=== PATIENT | female | born 1980 | race Hispanic/Latino ===

== ENCOUNTER → 2021-05-03 | Outpatient (CLI) | payer BC | END | disposition home or self-care (01) | LOC: RAH 11:16 | PROVIDERS: ATTEND Internal Medicine | DX: Z12.31 Encounter for screening mammogram for malignant neoplasm of breast (principal) | CPT/HCPCS: 77067 ==

== ENCOUNTER → 2021-05-05 | Outpatient (CLI) | payer BC ==
[~2021-05-05] MED LIST: IOHEXOL-350 75 ML VIAL IV ONE
== END | disposition home or self-care (01) ==
LOC: RAH 11:04
PROVIDERS: ATTEND Internal Medicine
DX: R22.41 Localized swelling, mass and lump, right lower limb (principal)
CPT/HCPCS: 73702; Q9967

== ENCOUNTER → 2021-06-24 | Outpatient (CLI) | payer OTHER | END | disposition home or self-care (01) | LOC: OIH 13:03 | PROVIDERS: ATTEND Internal Medicine | DX: Z13.6 Encounter for screening for cardiovascular disorders (principal) | CPT/HCPCS: 75571 ==

== ENCOUNTER → 2022-09-14 | Outpatient (CLI) | payer BC | END | disposition home or self-care (01) | LOC: RAH 13:49 | PROVIDERS: ATTEND Internal Medicine | DX: M19.012 Primary osteoarthritis, left shoulder (principal); M25.512 Pain in left shoulder; M25.712 Osteophyte, left shoulder | CPT/HCPCS: 73221 ==

== ENCOUNTER → 2023-12-13 | Outpatient (CLI) | payer BC | END | disposition home or self-care (01) | LOC: RAH 14:43 | PROVIDERS: ATTEND Internal Medicine | DX: Z12.31 Encounter for screening mammogram for malignant neoplasm of breast (principal) | CPT/HCPCS: 77067 ==

== ENCOUNTER → 2025-04-28 | Outpatient (CLI) | payer BC ==
--- NOTE | 2025-04-29 08:30 | HMCIMG ---
PROCEDURE: MAMMO DX BILATERAL, US BREAST COMPLETE UNILATERAL HISTORY: Nipple discharge COMPARISON: 12/13/2023 TECHNIQUE: Bilateral digital diagnostic mammogram with CAD was performed. No additional views were obtained. Right breast ultrasound study was performed. FINDINGS: The breasts are heterogeneously dense, which may obscure small masses. There is no evidence of a dominant mass, or suspicious microcalcification. There is no evidence of nipple retraction or skin thickening. This ultrasound study shows no evidence of cystic or hypoechoic mass. There is right axillary lymph node measuring 7 x 4 x 10 mm. A superficial laceration noted at the region of interest of right breast. IMPRESSION: 1. Stable mammogram. BI-RADS: CATEGORY 2: BENIGN FINDINGS Recommend monthly self breast exam as well as annual clinical examination. A negative x-ray should not delay biopsy if a dominant or clinically suspicious mass is present, since 8-10% of cancers are not identified by mammography. Dense breasts particularly, may obscure an underlying neoplasm. Some of these may be detected clinically and therefore, clinical examination is an essential part of breast evaluation.
== END | disposition home or self-care (01) ==
LOC: RAH 13:31
PROVIDERS: ATTEND Internal Medicine
DX: S21.011A Laceration without foreign body of right breast, initial encounter (principal); N64.52 Nipple discharge; R92.333 Mammographic heterogeneous density, bilateral breasts; X58.XXXA Exposure to other specified factors, initial encounter; Y93.89 Activity, other specified; Y92.89 Other specified places as the place of occurrence of the external cause; Y99.8 Other external cause status
CPT/HCPCS: 76641; 77066